=== PATIENT | female | born 1985 | race Hispanic/Latino ===

== ENCOUNTER → 2021-09-16 10:21 | Outpatient (CLI) | payer OTHER, SELFPAY ==
[2021-09-16 10:44] LABS: Add Manual Diff / Slide Review NO; Basophils Absolute Auto 0 /uL (0-100); Basophils Percent Auto 0.5 % (0-2); Eosinophils Absolute Auto 100 /uL (0-450); Eosinophils Percent Auto 1.4 % (2-4); Hematocrit 35.8 % (36-46); Lymphocytes Absolute Auto 1800 /uL (1100-4500); Lymphocytes Percent Auto 36.3 % (25-40); Mean Corpuscular HGB Conc 33.5 % (30-36); Mean Corpuscular Hemoglobin 29.9 PG (26-34); Mean Corpuscular Volume 89.1 fL (80-100); Monocytes Absolute Auto 400 /uL (0-900); Monocytes Percent Auto 8.5 % (3-14); Neutrophils Absolute Auto 2700 /uL (1500-7000); Neutrophils Percent Auto 53.3 % (50-75); Platelet Count 326 X10^3/uL (150-400); Red Blood Cell Count 4.02 X10^6/uL (4.0-5.2); Red Cell Distribution Width 13.4 % (11.6-14.8)
[2021-09-16 12:37] LABS: Alanine Aminotransferase 11 IU/L (<35); Albumin 4.4 g/dL (3.5-5.0); Albumin Globulin Ratio 1.3 (1.0-2.8); Alkaline Phosphatase 53 U/L (38-126); Aspartate Aminotransferase 19 IU/L (14-36); BUN Creatinine Ratio 19.7 (6-22); Bilirubin Total 0.8 mg/dL (0.2-1.3); Blood Urea Nitrogen 13 mg/dL (7-17); Calcium 8.9 mg/dL (8.4-10.2); Carbon Dioxide 26 mmol/L (22-32); Chloride 103 mmol/L (98-107); Cholesterol 131 mg/dL (140-199); Estimated Glomerular Filt Rate > 60 mL/min (>60); Globulin 3.3 g/dL (1.7-4.1); Glucose 95 mg/dL (70-100); HDL Cholesterol 48 mg/dL (40-60); HEMOLYSIS < 15 (0-50); LDL Cholesterol Calculated 70 mg/dL (<100); Potassium 4.2 mmol/L (3.4-5.1); Sodium 138 mmol/L (137-145); Total Protein 7.7 g/dL (6.3-8.2); Triglycerides 64 mg/dL (35-150)
[2021-09-16 13:25] LABS: Vitamin B12 505 pg/mL (239-931)
[2021-09-16 13:29] LABS: TSH w/ Reflex to FT4 1.44 uIU/mL (0.47-4.68)
[2021-09-16 17:06] LABS: Vitamin D 25 Hydroxy (D3) > 126 ng/mL (30.0-100.0)
== END ==
PROVIDERS: PCP Family Medicine; Referring Provider Family Medicine; Visit Provider Family Medicine
DX: R53.83 Other fatigue (principal); R61 Generalized hyperhidrosis; R68.89 Other general symptoms and signs
CPT/HCPCS: 36415; 80053; 80061; 82306; 82607; 84443; 85025

== ENCOUNTER → 2021-11-09 11:15 | Outpatient (CLI) | payer OTHER, SELFPAY ==
--- NOTE | 2021-11-09 11:17 | DI.US.S_ITS ---
PROCEDURE: US PELVIC COMPLETE INDICATIONS: R side pelvic pain TECHNIQUE: Real-time scanning was performed of the pelvic organs, with image documentation. Additional endovaginal scanning was necessary due to incomplete visualization of the adnexal and endometrial structures by transabdominal scanning. COMPARISON: None. FINDINGS: Uterus: Uterus is anteverted and normal in size at 9.2 x 5.9 x 4.7 cm. The myometrium is homogeneous. The endometrium measures 17 mm combined thickness. Ovaries: The right ovary measures 3 x 2.9 x 1.8 cm, with a calculated ovarian volume of 8.1 cc. Within the right ovary, there is a solid-appearing nodule with peripheral vascularity that measures 1.9 x 1.7 x 1.5 cm. A simple appearing dominant follicle can be seen on the right measuring up to 1.5 cm. There is a subserosal fibroid seen on the left anteriorly that measures 1.6 x 1.4 x 1.3 cm. The left ovary measures 2.9 x 2.8 x 1.2 cm, with a calculated ovarian volume of 5 cc. No significant abnormality of the left ovary can be seen. More than 12 follicles can be seen in each ovary. No adnexal masses are seen. Other: No pathologic free abdominal or pelvic fluid. IMPRESSION: A solid-appearing right ovarian nodule is seen with peripheral vascularity that measures up to 1.9 cm. This is felt most likely to be related to a hemorrhagic cyst. If it would be clinically appropriate, a followup pelvic ultrasound could be considered in 6 weeks to assure resolution/ improvement. More than 12 follicles can be seen involving each ovary, which is consistent with polycystic ovarian syndrome. The endometrial stripe measures near the upper limits of normal at 17 mm. A 1.6 cm subserosal fibroid is incidentally noted. We strive to produce accurate, complete, and clear reports of imaging services. To assist us in improving patient care, this report was composed using standard report templates and voice recognition software. Therefore, it may contain abnormal punctuation, insertions and/or omissions. Occasional wrong-word or sound-alike substitutions may occur. Though we review the report and make efforts to correct it, we do recommend that the report be read carefully in proper context to recognize any text inaccuracies. Dictated by: Nabor Rodriguez M.D. on 11/09/2021 at 13:17 Approved by: Nabor Rodriguez M.D. on 11/09/2021 at 13:20
== END ==
PROVIDERS: PCP Family Medicine; Referring Provider Physician Assistant Medical; Visit Provider Physician Assistant Medical
DX: R10.2 Pelvic and perineal pain (principal); D25.2 Subserosal leiomyoma of uterus; N83.9 Noninflammatory disorder of ovary, fallopian tube and broad ligament, unspecified; N83.201 Unspecified ovarian cyst, right side
CPT/HCPCS: 76830; 76856

== ENCOUNTER → 2021-11-17 11:09 | Outpatient (CLI) | payer OTHER, SELFPAY ==
[2021-11-17 13:16] LABS: Cancer Antigen 125 14.5 U/mL (0-35)
== END ==
PROVIDERS: PCP Family Medicine; Referring Provider Physician Assistant Medical; Visit Provider Physician Assistant Medical
DX: N83.8 Other noninflammatory disorders of ovary, fallopian tube and broad ligament (principal)
CPT/HCPCS: 36415; 86304

== ENCOUNTER → 2022-06-05 09:11 | Outpatient (CLI) | payer OTHER, SELFPAY ==
[2022-06-05 10:37] LABS: Cancer Antigen 125 6.8 U/mL (0-35)
== END ==
PROVIDERS: PCP Family Medicine; Referring Provider Obstetrics & Gynecology; Visit Provider Obstetrics & Gynecology
DX: N83.8 Other noninflammatory disorders of ovary, fallopian tube and broad ligament (principal); R19.09 Other intra-abdominal and pelvic swelling, mass and lump
CPT/HCPCS: 36415; 86304

== ENCOUNTER → 2022-06-11 16:13 | Outpatient (CLI) | payer OTHER, SELFPAY ==
--- NOTE | 2022-06-11 16:16 | DI.US.S_ITS ---
PROCEDURE: US PELVIC COMPLETE INDICATIONS: F/U right ovarian mass TECHNIQUE: Real-time scanning was performed of the pelvic organs, with image documentation. Additional endovaginal scanning was necessary due to incomplete visualization of the adnexal and endometrial structures by transabdominal scanning. COMPARISON: [facility], US, US PELVIC COMPLETE, 11/09/2021, 12:32. FINDINGS: Uterus: Uterus is anteverted and normal in size at 9.4 x 4.4 x 5 point cm. The myometrium is heterogeneous. The endometrium measures 13 mm combined thickness. No focal uterine mass Ovaries: The right ovary measures 3.2 x 1.4 x 2 point cm, with a calculated ovarian volume of 4.7 cc. The left ovary measures 3.6 x 2.0 x 2.2 cm, with a calculated ovarian volume of 8.2 cc. The ovaries have a normal sonographic appearance. Left ovarian complex cyst is present measuring 23 mm. No adnexal masses are seen. Other: No pathologic free abdominal or pelvic fluid. IMPRESSION: 1. No evidence of right ovarian mass. 2. Complex left ovarian cyst. We strive to produce accurate, complete, and clear reports of imaging services. To assist us in improving patient care, this report was composed using standard report templates and voice recognition software. Therefore, it may contain abnormal punctuation, insertions and/or omissions. Occasional wrong-word or sound-alike substitutions may occur. Though we review the report and make efforts to correct it, we do recommend that the report be read carefully in proper context to recognize any text inaccuracies. Dictated by: Mariama Purvis M.D. on 06/11/2022 at 16:45 Transcribed by: ANTONIO on 06/11/2022 at 16:47 Approved by: Mariama Purvis M.D. on 06/11/2022 at 16:57
== END ==
PROVIDERS: PCP Family Medicine; Referring Provider Obstetrics & Gynecology; Visit Provider Obstetrics & Gynecology
DX: N83.8 Other noninflammatory disorders of ovary, fallopian tube and broad ligament (principal); R10.2 Pelvic and perineal pain; N83.292 Other ovarian cyst, left side
CPT/HCPCS: 76830; 76856

== ENCOUNTER 2022-11-18 14:19 | Emergency (ER) | payer OTHER, SELFPAY ==
[2022-11-18 14:47] VITALS: BP 133/73; PULSE 78; RESP 20; TEMP 37; O2SAT 100; BMI 23.2
[2022-11-18] MEDS: cephALEXin 250 MG CAPSULE 500 MG PO (14:59)
[2022-11-18 15:00] LABS: Bacteria Urine Few (2-10); Culture Indicated Urine Specimen Cultured; RBC Urine 0-1/HPF (0-5/HPF); Squamous Epithelial Cell Urine 0-1 /HPF (0-5/HPF); WBC Urine 1-5/HPF (0-5/HPF)
--- NOTE | 2022-11-18 15:00 | ED.ABDPAIN ---
HPI - Abdominal Pain <GEE Linda - Last Filed: 11/18/22 15:43> General Chief Complaint: Urogenital-Female Stated Complaint: Lower back pain, Rt side and under rib Time Seen by Provider: 11/18/22 14:41 Source: patient Mode of arrival: Ambulatory History of Present Illness HPI narrative: This is a 37-year-old female presents to the emergency department with 4 days of worsening right flank pain, states it arches downward and this is similar to how a prior urinary tract infection has gone for her. She states that her symptoms have progressively gotten worse. Denies fever, nausea vomiting. She denies dysuria, blood in her urine, changes to her stool. She states that she went to [facility] earlier this morning and had lab work and a urine test which was negative for infection. She was sent to the emergency department for further testing. Patient states she is not on her menses but denies chance of . Related Data Previous Rx's Medication Instructions Recorded itraconazole 100 mg capsule 200 mg PO DAILY #168 caps 11/05/21 cephalexin 500 mg capsule 500 mg PO QID 7 days #28 caps 11/18/22 Allergies Allergy/AdvReac Type Severity Reaction Status Date / Time No Known Drug Allergies Allergy Verified 11/18/22 14:53 Review of Systems <GEE Linda - Last Filed: 11/18/22 15:43> Review of Systems ROS Unobtainable: All systems reviewed & are unremarkable except as noted in HPI and below Patient History <GEE Linda - Last Filed: 11/18/22 15:43> Medical History Cold intolerance Complex cyst of right ovary Fatigue Night sweats Uterine fibroid Social History Smoking Status: Never smoker Smoking Status: Never smoker alcohol intake frequency: 0-2 drinks per day Substance Use Type: does not use Exam <GEE Linda - Last Filed: 11/18/22 15:43> Narrative Exam Narrative: Reviewed vitals signs and nursing notes. General: Pleasant, sitting upright, in no acute distress, well groomed, afebrile HEENT: symmetrical facial expressions, moist mucous membranes CV: regular rate and rhythm, warm extremities Respiratory: normal work of breathing, without tachypnea or hypoxia. GI: abdomen soft, nondistended, patient has right CVA tenderness, no CVA tenderness on the left, no abdominal tenderness to palpation, no suprapubic tenderness or ovarian tenderness to palpation bilaterally MSK: moves all extremities, no weakness, normal tone, ambulatory without deficit Skin: brisk capillary refill, without rash or wound Neuro: clear speech and normal cognition, A&O x3, GCS 15, no focal motor or sensation deficits Initial Vital Signs Initial Vital Signs: Vital Signs Temperature 98.6 F 11/18/22 14:47 Pulse Rate 78 11/18/22 14:47 Respiratory Rate 20 11/18/22 14:47 Blood Pressure 133/73 11/18/22 14:47 Pulse Oximetry 100 11/18/22 14:47 Oxygen Delivery Method Room Air 11/18/22 14:47 <DO Monet Epstein Last Filed: 11/18/22 19:08> Initial Vital Signs Initial Vital Signs: Vital Signs Temperature 98.6 F 11/18/22 14:47 Pulse Rate 78 11/18/22 14:47 Respiratory Rate 20 11/18/22 14:47 Blood Pressure 133/73 11/18/22 14:47 Pulse Oximetry 100 11/18/22 14:47 Oxygen Delivery Method Room Air 11/18/22 14:47 Course <Renetta Sellers [facility] - Last Filed: 11/18/22 15:43> Orders Ordered: ED Orders 11/18/22 14:39 Urine Culture Stat Urine Microscopic Stat Discontinued Medications Cephalexin HCl (Cephalexin 250 Mg Capsule) 500 mg PO NOW ONE Stop: 11/18/22 14:52 Last Admin: 11/18/22 14:59 Dose: 500 mg Documented By: ASTER Vital Signs Vital signs: Vital Signs - 8 hr 11/18/22 14:47 Temperature 98.6 F Pulse Rate 78 Respiratory Rate 20 Blood Pressure 133/73 Pulse Oximetry 100 Oxygen Delivery Method Room Air <DO Monet Epstein Last Filed: 11/18/22 19:08> Orders Ordered: ED Orders 11/18/22 14:39 Urine Culture Stat Urine Microscopic Stat Discontinued Medications Cephalexin HCl (Cephalexin 250 Mg Capsule) 500 mg PO NOW ONE Stop: 11/18/22 14:52 Last Admin: 11/18/22 14:59 Dose: 500 mg Documented By: ASTER Vital Signs Vital signs: Vital Signs - 8 hr 11/18/22 14:47 Temperature 98.6 F Pulse Rate 78 Respiratory Rate 20 Blood Pressure 133/73 Pulse Oximetry 100 Oxygen Delivery Method Room Air MDM - Abdominal Pain <GEE Linda - Last Filed: 11/18/22 15:43> Lab Data Labs: Lab Results 11/18/22 Range/Units 14:39 Urine RBC 0-1/hpf (0-5/HPF) Urine WBC 1-5/hpf (0-5/HPF) Ur Squamous Epith Cells 0-1 /hpf (0-5/HPF) Urine Bacteria Few (2-10) H (None) Ur Culture Indicated? Specimen cultured Point of care testing: Point of Care Testing Test Results Negative Urine Dip Bedside Urine Glucose Negative Bedside Urine Bilirubin - Negative Bedside Urine Ketone ++ 40 Urine Specific [place] 1.010 Bedside Urine Occult Blood + Bedside Urine pH 6.0 Bedside Urine Protein - Negative Bedside Urine Urobilinogen - Negative Bedside Urine Nitrite - Negative Bedside Urine Leukocytes + 70 Esterase MDM Narrative Medical decision making narrative: Chief Complaint: Right flank pain Multiple etiologies for patient's complaint considered including, but not limited to: Urinary tract infection, pyelonephritis, ectopic , muscle strain, nephrolithiasis I have independently reviewed the patient's vital signs and nursing notes as well as prior records if available. Plan: Patient's urine dip shows leukocyte esterase, wbc's and blood, urine microscopy shows bacteria without blood. Urine was cultured, patient was treated with cephalexin, no prior urine cultures on record, will treat q.i.d. x7 days, she does have systemic symptoms including fever, chills, nausea vomiting only pain. Course of Care: Patient has a positive UA, will treat with cephalexin q.i.d. x7 days, pending lab results from [place], patient denies any systemic symptoms of illness. Patient understands to return to the emergency department for new or worsening symptoms, nausea vomiting, fever chills. Social considerations that may affect disposition: none Questions are addressed and there is agreement with the plan and for follow-up*. I consulted with the ED attending physician Dr. Mukherjee as needed for higher level of care considerations and they were available for discussion and recommendations regarding plan of care and diagnostic testing. Patient is appropriate for outpatient management. <Eva Mukherjee, DO - Last Filed: 11/18/22 19:08> Lab Data Labs: Lab Results 11/18/22 Range/Units 14:39 Urine RBC 0-1/hpf (0-5/HPF) Urine WBC 1-5/hpf (0-5/HPF) Ur Squamous Epith Cells 0-1 /hpf (0-5/HPF) Urine Bacteria Few (2-10) H (None) Ur Culture Indicated? Specimen cultured Point of care testing: Point of Care Testing Test Results Negative Urine Dip Bedside Urine Glucose Negative Bedside Urine Bilirubin - Negative Bedside Urine Ketone ++ 40 Urine Specific [place] 1.010 Bedside Urine Occult Blood + Bedside Urine pH 6.0 Bedside Urine Protein - Negative Bedside Urine Urobilinogen - Negative Bedside Urine Nitrite - Negative Bedside Urine Leukocytes + 70 Esterase Discharge Plan Departure Patient Disposition: Home Clinical Impression: Complicated urinary tract infection Instructions: DI for Kidney Infection Activity Restrictions/Additional Instructions: *You have been diagnosed with a urinary tract infection, right flank pain which is likely a kidney infection. Please start this antibiotic and come back to the hospital if you do not start getting better after 1 day. Try and stay hydrated and take Tylenol and ibuprofen every 6 hours together for maximum pain control. I hope feel better soon, we will call you if we need to change the antibiotic based on the urine culture. If you develop fever, chills, nausea vomiting, please come back to the hospital. Follow-up with your regular doctor for a test of cure if you are still having symptoms after the antibiotic course. *What to do: *Please continue to take your regular medications as directed. x ] New medication prescriptions sent to your pharmacy: [ [facility]] [ ] New medication written as a paper prescription [ ] No new medications given *Please call and schedule follow up with your primary care provider in 2-3 days, at least for an update. Let them know you were seen in the Emergency Department for the above problem. We will electronically transmit a record of today's note if your PCP or specialist is in our system. *If you do not have a primary care provider please contact [phone] to establish care with one of the [facility] primary care providers. *Return to the Emergency Department for worsening symptoms, inability to keep liquids down, fever greater than 101F, chills, or other concerning symptom. Prescriptions: New cephalexin 500 mg capsule 500 mg PO QID 7 Days Qty: 28 0RF No Action itraconazole 100 mg capsule 200 mg PO DAILY Qty: 168 0RF Rx Instructions: must administer with a meal/food Referrals: Sumeet Farmer MD [Primary Care Provider] - Stand Alone Forms: Patient Portal/API <Eva Mukherjee DO - Last Filed: 11/18/22 19:08> Cosign ED Attending Costanvirature Attestation: I was immediately available in the department for consultation. Documentation has been reviewed.
== END 2022-11-18 15:13 | disposition home or self-care (01) ==
PROVIDERS: Emergency Provider Nurse Practitioner Critical Care Medicine; PCP Family Medicine
DX: N39.0 Urinary tract infection, site not specified (principal)
CPT/HCPCS: 81003; 81015; 81025; 87077; 87086; 87186; 99283; 99284

== ENCOUNTER → 2022-12-16 16:38 | Outpatient (CLI) | payer OTHER, SELFPAY ==
[2022-12-16 18:07] LABS: Add Manual Diff / Slide Review NO; Basophils Absolute Auto 0 /uL (0-100); Basophils Percent Auto 0.5 % (0-2); Eosinophils Absolute Auto 100 /uL (0-450); Eosinophils Percent Auto 1.8 % (2-4); Hematocrit 33.3 % (36-46); Hemoglobin 11.4 g/dL (12.0-16.0); Lymphocytes Absolute Auto 2200 /uL (1100-4500); Lymphocytes Percent Auto 34.6 % (25-40); Mean Corpuscular HGB Conc 34.2 % (30-36); Mean Corpuscular Hemoglobin 30.1 PG (26-34); Mean Corpuscular Volume 88.1 fL (80-100); Monocytes Absolute Auto 600 /uL (0-900); Monocytes Percent Auto 10.1 % (3-14); Neutrophils Absolute Auto 3400 /uL (1500-7000); Platelet Count 301 X10^3/uL (150-400); Red Blood Cell Count 3.78 X10^6/uL (4.0-5.2); Red Cell Distribution Width 14.2 % (11.6-14.8); White Blood Cell Count 6.3 X10^3/uL (4.5-11.0)
[2022-12-16 18:12] LABS: Appearance Urine UA CLEAR; Bilirubin Urine UA NEGATIVE (NEGATIVE); Color Urine UA YELLOW; Glucose Urine UA NEGATIVE (Negative); Ketones Urine UA NEGATIVE (NEGATIVE); Leukocyte Esterase Urine UA NEGATIVE (NEGATIVE); Nitrite Urine UA NEGATIVE (Negative); Occult Blood Urine UA NEGATIVE (Negative); Protein Urine UA NEGATIVE (Negative)
[2022-12-16 18:20] LABS: Bacteria Urine Few (2-10); RBC Urine 0-1/HPF (0-5/HPF); Squamous Epithelial Cell Urine 1-5 /HPF (0-5/HPF); WBC Urine 0-1/HPF (0-5/HPF)
[2022-12-16 18:21] LABS: Culture Indicated Urine Cult Not Indicated
[2022-12-16 18:42] LABS: Alanine Aminotransferase 19 IU/L (<35); Albumin 4.2 g/dL (3.5-5.0); Albumin Globulin Ratio 1.3 (1.0-2.8); Alkaline Phosphatase 52 U/L (38-126); Aspartate Aminotransferase 21 IU/L (14-36); Bilirubin Total 0.3 mg/dL (0.2-1.3); Blood Urea Nitrogen 11 mg/dL (7-17); Calcium 8.7 mg/dL (8.4-10.2); Carbon Dioxide 26 mmol/L (22-32); Chloride 106 mmol/L (98-107); Cholesterol 118 mg/dL (140-199); Estimated Glomerular Filt Rate > 60 mL/min (>60); Globulin 3.3 g/dL (1.7-4.1); Glucose 92 mg/dL (70-100); HDL Cholesterol 46 mg/dL (40-60); HEMOLYSIS < 15 (0-50); LDL Cholesterol Calculated 50 mg/dL (<100); Lipase 99 U/L (23-300); Potassium 3.9 mmol/L (3.4-5.1); Sodium 138 mmol/L (137-145); Total Protein 7.5 g/dL (6.3-8.2); Triglycerides 109 mg/dL (35-150)
== END ==
PROVIDERS: PCP Family Medicine; Referring Provider Family Medicine; Visit Provider Family Medicine
DX: R10.11 Right upper quadrant pain (principal); R39.15 Urgency of urination; R53.83 Other fatigue
CPT/HCPCS: 36415; 80053; 80061; 81001; 83690; 85025

== ENCOUNTER → 2023-05-04 11:14 | Outpatient (CLI) | payer OTHER, SELFPAY ==
[2023-05-04 12:59] LABS: Add Manual Diff / Slide Review NO; Basophils Absolute Auto 0 /uL (0-100); Basophils Percent Auto 0.6 % (0-2); Eosinophils Absolute Auto 100 /uL (0-450); Eosinophils Percent Auto 1.2 % (2-4); Hematocrit 38.2 % (36-46); Lymphocytes Absolute Auto 1200 /uL (1100-4500); Mean Corpuscular Volume 91.3 fL (80-100); Monocytes Absolute Auto 800 /uL (0-900); Neutrophils Absolute Auto 3700 /uL (1500-7000); Neutrophils Percent Auto 63.2 % (50-75); Platelet Count 324 X10^3/uL (150-400); Red Blood Cell Count 4.19 X10^6/uL (4.0-5.2); Red Cell Distribution Width 13.5 % (11.6-14.8); White Blood Cell Count 5.9 X10^3/uL (4.5-11.0)
[2023-05-04 13:49] LABS: HEMOLYSIS < 15 (0-50); Iron 144 ug/dL (37-170)
[2023-05-04 14:00] LABS: Percent Iron Saturation 39 % (15-50); Total Iron Binding Capacity 365 ug/dL (265-497); Transferrin 302 mg/dL (206-381)
[2023-05-04 14:25] LABS: Ferritin 13 ng/mL (6-137)
== END ==
LOC: LAB 11:15
PROVIDERS: PCP Family Medicine; Referring Provider Family Medicine; Visit Provider Family Medicine
DX: E61.1 Iron deficiency (principal)
CPT/HCPCS: 36415; 82728; 83540; 83550; 85025

== ENCOUNTER → 2023-07-14 11:14 | Outpatient (CLI) | payer OTHER, SELFPAY | PROVIDERS: PCP Family Medicine; Visit Provider Physician Assistant | DX: R30.0 Dysuria (principal) | CPT/HCPCS: 87077; 87086; 87186 ==

== ENCOUNTER → 2024-01-05 09:27 | Outpatient (CLI) | payer OTHER, SELFPAY ==
[2024-01-05 10:10] LABS: Add Manual Diff / Slide Review NO; Basophils Absolute Auto 100 /uL (0-100); Eosinophils Absolute Auto 100 /uL (0-450); Eosinophils Percent Auto 1.6 % (2-4); Hematocrit 39.7 % (36-46); Hemoglobin 13.4 g/dL (12.0-16.0); Lymphocytes Absolute Auto 2000 /uL (1100-4500); Lymphocytes Percent Auto 34.9 % (25-40); Mean Corpuscular HGB Conc 33.7 % (30-36); Mean Corpuscular Volume 92.2 fL (80-100); Monocytes Absolute Auto 600 /uL (0-900); Monocytes Percent Auto 10.8 % (3-14); Neutrophils Absolute Auto 3000 /uL (1500-7000); Neutrophils Percent Auto 51.7 % (50-75); Platelet Count 294 X10^3/uL (150-400); Red Blood Cell Count 4.31 X10^6/uL (4.0-5.2); Red Cell Distribution Width 13.6 % (11.6-14.8); White Blood Cell Count 5.8 X10^3/uL (4.5-11.0)
[2024-01-05 10:39] LABS: Alanine Aminotransferase 15 IU/L (<35); Albumin 4.8 g/dL (3.5-5.0); Albumin Globulin Ratio 1.4 (1.0-2.8); Alkaline Phosphatase 54 U/L (38-126); Aspartate Aminotransferase 20 IU/L (14-36); Bilirubin Total 0.8 mg/dL (0.2-1.3); Blood Urea Nitrogen 13 mg/dL (7-17); Calcium 10.1 mg/dL (8.4-10.2); Carbon Dioxide 25 mmol/L (22-32); Chloride 104 mmol/L (98-107); Estimated Glomerular Filt Rate > 60 mL/min (>60); Globulin 3.5 g/dL (1.7-4.1); Glucose 56 mg/dL (70-100); HEMOLYSIS < 15 (0-50); Potassium 4.2 mmol/L (3.4-5.1); Sodium 140 mmol/L (137-145); Total Protein 8.3 g/dL (6.3-8.2)
[2024-01-05 11:16] LABS: TSH w/ Reflex to FT4 1.59 uIU/mL (0.47-4.68)
[2024-01-05 11:20] LABS: Vitamin D 25 Hydroxy (D3) 64.1 ng/mL (30.0-100.0)
[2024-01-05 11:26] LABS: Appearance Urine UA CLEAR; Bilirubin Urine UA NEGATIVE (NEGATIVE); Color Urine UA YELLOW; Glucose Urine UA NEGATIVE (Negative); Ketones Urine UA NEGATIVE (NEGATIVE); Leukocyte Esterase Urine UA NEGATIVE (NEGATIVE); Nitrite Urine UA NEGATIVE (Negative); Occult Blood Urine UA NEGATIVE (Negative); Protein Urine UA NEGATIVE (Negative); Specific Gravity Urine UA <=1.005 (1.000-1.035); Urobilinogen Urine UA 0.2 E.U./dL (0.2)
[2024-01-05 11:28] LABS: pH Urine UA 6.5 (4.5-8.0)
[2024-01-05 11:40] LABS: Bacteria Urine Many (>30); Culture Indicated Urine Cult Not Indicated; RBC Urine None Seen (0-5/HPF); Squamous Epithelial Cell Urine 1-5 /HPF (0-5/HPF); Urine Volume 10mL (spun); WBC Urine None Seen (0-5/HPF)
== END ==
PROVIDERS: PCP Family Medicine; Referring Provider Family Medicine; Visit Provider Family Medicine
DX: R68.89 Other general symptoms and signs (principal); R53.83 Other fatigue; L65.9 Nonscarring hair loss, unspecified; R30.0 Dysuria; R61 Generalized hyperhidrosis
CPT/HCPCS: 36415; 80053; 81001; 82306; 84443; 85025

== ENCOUNTER → 2024-01-20 10:17 | Outpatient (CLI) | payer OTHER, SELFPAY ==
[2024-01-20 11:00] LABS: Influenza A - CEPHEID Flu A NEGATIVE (NEGATIVE); Influenza B - CEPHEID Flu B NEGATIVE (NEGATIVE); Respiratory Syncytial Virus Negative (Negative)
[2024-01-20 11:03] LABS: COVID-19 CEPHEID 4-PLEX PCR Negative (Negative)
== END ==
PROVIDERS: PCP Family Medicine; Visit Provider Nurse Practitioner Family
DX: R05.1 Acute cough (principal)
CPT/HCPCS: 0241U

== ENCOUNTER → 2024-04-19 12:29 | Outpatient (CLI) | payer OTHER, SELFPAY ==
--- NOTE | 2024-04-19 12:29 | DI.ECHO.S_ITS ---
[facility] : : [id number] : [place] : : [id number] : : Phone: [phone] Echocardiogram Report + + :Name: CLEM FREITAS V Study Date: 04/19/2024 Height: 62 in : :[facility] ReadingLocation: Weight: 130 lb : : Gender: Female BSA: 1.6 m2 : :: 1985 Age: 38 yrs BP: 117/85 mmHg: :Reason For Study: [place] : :Ordering Physician: ELYSSA, : :MAGGI Performed By: Mao Hayden : :Referring: MAGGI BERGERON : + + Interpretation Summary The left ventricle is normal in size and wall thickness. The ejection fraction is estimated to be 60-65%. The right ventricle is not well visualized. The right ventricle grossly appears normal in size with probable normal systolic function. The mitral valve is grossly normal. The aortic valve is not well visualized. The aortic valve is grossly normal. Procedure: Limited study due to pectus malformation and breast implants. A two-dimensional transthoracic echocardiogram with color flow and Doppler was performed in limited views only. The study quality was technically difficult. The study quality was technically limited. There is no prior echocardiogram noted for this patient. The patient was in normal sinus rhythm during the exam. Left Ventricle: The left ventricle is normal in size and wall thickness. There is no ventricular septal defect visualized. The ejection fraction is estimated to be 60-65%. Right Ventricle: The right ventricle is not well visualized. The right ventricle grossly appears normal in size with probable normal systolic function. Atria: The left atrium is not well visualized. Right atrium not well visualized. Mitral Valve: The mitral valve is grossly normal. Aortic Valve: The aortic valve is not well visualized. The aortic valve is grossly normal. Tricuspid Valve: The tricuspid valve is not well visualized. Pulmonic Valve: The pulmonic valve is not well visualized. There is no pulmonic valvular regurgitation. Great Vessels: The aortic root is normal size. The dimensions of the ascending aorta are normal. The pulmonary is not well visualized. The inferior vena cava was not visualized. Pericardium/ Pleura There is no pericardial effusion. MMode/2D Measurements & Calculations LVIDd: 4.4 cm LVOT diam: 2.1 cm LVIDs: 2.8 cm Ao root diam: 2.8 cm FS: 36.0 % asc Aorta Diam: 2.2 cm EPSS: 0.30 cm IVSd: 0.70 cm LVPWd: 0.79 cm LV cleaning. diameter/BSA (cm/m^2): 2.8 LV sys. diameter/BSA (cm/m^2): 1.8 Doppler Measurements & Calculations PA V2 max: 76.6 cm/sec PA V2 mean: 46.6 cm/sec PA mean P.0 mmHg PA pr(Accel): 22.5 mmHg Reading Physician:12:57 AM
== END ==
PROVIDERS: PCP Family Medicine; Referring Provider Family Medicine; Visit Provider Family Medicine
DX: R01.1 Cardiac murmur, unspecified (principal)
CPT/HCPCS: 93306

== ENCOUNTER → 2025-01-11 16:23 | Outpatient (CLI) | payer OTHER, SELFPAY ==
--- NOTE | 2025-01-11 16:25 | DI.US.S_ITS ---
PROCEDURE: US PELVIC COMPLETE INDICATIONS: history of ovarian cyst TECHNIQUE: Real-time scanning was performed of the pelvic organs, with image documentation. Additional endovaginal scanning was necessary due to incomplete visualization of the adnexal and endometrial structures by transabdominal scanning. COMPARISON: [facility], US, US PELVIC COMPLETE, 06/11/2022, 16:24. FINDINGS: Uterus: Uterus is anteverted and normal in size at 8.5 x 3.6 x 5.5 cm. The myometrium is homogeneous. The endometrium measures 8 mm combined thickness. Ovaries: The right ovary measures 2.9 x 1.6 x 2.2 cm, with a calculated ovarian volume of 5.2 cc. The left ovary measures 3.3 x 1.5 x 2.2 cm, with a calculated ovarian volume of 5.0 cc. Dominant follicles bilaterally measuring 1.5 cm or less. The ovaries have a normal sonographic appearance. Less than 12 follicles can be seen in each ovary. No adnexal masses are seen. Other: No pathologic free abdominal or pelvic fluid. IMPRESSION: Normal appearance of the uterus and ovaries. No complex ovarian cysts. We strive to produce accurate, complete, and clear reports of imaging services. To assist us in improving patient care, this report was composed using standard report templates and voice recognition software. Therefore, it may contain abnormal punctuation, insertions and/or omissions. Occasional wrong-word or sound-alike substitutions may occur. Though we review the report and make efforts to correct it, we do recommend that the report be read carefully in proper context to recognize any text inaccuracies. Dictated by: Eloy Pineda M.D. on 01/11/2025 at 17:35 Approved by: Eloy Pineda M.D. on 01/11/2025 at 17:36
== END ==
LOC: US 16:24
PROVIDERS: PCP Family Medicine; Referring Provider Obstetrics & Gynecology; Visit Provider Obstetrics & Gynecology
DX: N83.8 Other noninflammatory disorders of ovary, fallopian tube and broad ligament (principal); R10.20 Pelvic and perineal pain unspecified side
CPT/HCPCS: 76830; 76856